=== PATIENT | male | born 1980 | race Caucasian/White ===

== ENCOUNTER 2019-05-10 07:36 | Emergency (ER) | payer OTHER ==
[~2019-05-10] VITALS: Ht 175.3 cm; Wt 95.3 kg
[2019-05-10] MEDS ORDERED: COZAAR 25 MG TA25 M1 PO (08:21)
[2019-05-10 09:01] LABS: ABSOLUTE BASOPHILS 0.1 thou/uL (0.0-0.2); ABSOLUTE EOSINOPHILS 0.1 thou/uL (0.0-0.7); ABSOLUTE LYMPHOCYTES 1.4 thou/uL (0.8-5.3); ABSOLUTE MONOCYTES 0.6 thou/uL (0.0-1.2); ABSOLUTE NEUTROPHILS 7.4 thou/uL (1.6-8.1); BASOPHILS 0.5 %; EOSINOPHILS 0.6 %; HEMATOCRIT 46.3 % (42.0-52.0); HEMOGLOBIN 16.3 gm/dL (14.0-18.0); LYMPHOCYTES 14.7 %; MCH 31.6 pg (26.0-34.0); MCHC 35.2 g/dL (28.0-37.0); MONOCYTES 6.2 %; MPV 10.4 fl. (7.2-11.1); NUCLEATED RBCS 0 /100WBC; PLATELET COUNT* 151 thou/uL (150-400); RBC 5.15 mil/uL (4.50-6.00); RDW-CV 12.6 % (10.5-14.5); WBC 9.5 thou/uL (4.0-11.0)
[2019-05-10 09:37] LABS: ANION GAP 10 mmol/L (7-16); BUN 11 mg/dL (7-18); CALCIUM 9.2 mg/dL (8.5-10.1); CHLORIDE 103 mmol/L (98-107); CO2 28 mmol/L (21-32); GLUCOSE 123 mg/dL (70-99); POTASSIUM 3.4 mmol/L (3.5-5.1); SODIUM 141 mmol/L (136-145)
[2019-05-10 09:46] LABS: ALBUMIN 4.1 g/dL (3.4-5.0); ALKALINE PHOSPHATASE 93 U/L (46-116); SGOT 26 U/L (15-37); SGPT 59 U/L (30-65); TOTAL BILIRUBIN 0.5 mg/dL (<0.1-1.0); TOTAL PROTEIN 7.9 g/dL (6.4-8.2); TROPONIN-I LEVEL <0.06 ng/mL (<0.06)
[2019-05-10 11:28] VITALS: BP 120/72
--- NOTE | 2019-05-11 14:55 | EKG ---
[place] [address] ELECTROCARDIOGRAM REPORT Name: PAUL RAMESH [id number] Admission: 05/10/19 Attend Phys: Discharge: 05/10/19 Date of : 80 Report #: [id number] THIS REPORT FOR: //name// 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
== END 2019-05-10 11:30 | disposition home or self-care (01) ==
LOC: M.ERS 07:36
PROVIDERS: Emergency Medicine Emergency Medical Services
DX: R55 Syncope and collapse (principal); R53.1 Weakness; I10 Essential (primary) hypertension